=== PATIENT | female | born 1945 | race Caucasian/White ===

== ENCOUNTER → 2022-04-06 13:44 | Outpatient (CLI) | payer OTHER, SELFPAY ==
--- NOTE | 2022-04-06 | DI.MRI.S_ITS ---
PROCEDURE: MR KNEE LT WO/W CON INDICATIONS: LEFT KNEE MASS TECHNIQUE: Noncontrast sagittal PD fast spin echo and T2 fast spin echo with fat saturation, sagittal 3-D FLASH with fat saturation; coronal T1 spin echo and PD fast spin echo with fat saturation, and axial T1 spin echo and PD fast spin echo with fat saturation through the knee. Post-contrast axial, coronal, and sagittal T1 spin echo with fat saturation through the knee. COMPARISON: Outside Film, CR, XR KNEE 4+ VIEWS LEFT, 01/12/2022, 16:57 FINDINGS: Image quality: Excellent. Menisci: There is linear oblique high T2 signal intensity traversing the inner, middle, and peripheral thirds of the medial meniscal body and posterior horn, demonstrating inferior articular surface extension, indicating oblique tearing. Lateral meniscus is intact. Cruciate ligaments: The anterior and posterior cruciate ligaments appear intact. Medial structures: The medial collateral ligament appears intact. There is a well-circumscribed low T1/T2 signal intensity focus involving the anterior fibers of the medial collateral ligament at the femoral origin, measuring roughly 13 mm anteroposterior by 8 mm transverse by 20 mm craniocaudal, corresponding to the calcific density seen by plain film. Moderate ill-defined T2 signal elevation surrounding this lesion is present within the soft tissues. No abnormal enhancement within this lesion is present. The posterior oblique ligament, semimembranosus tendon insertions, and oblique popliteal liagment, and meniscocapsular junction appear intact. Visualized portions of the pes anserinus tendons appear normal. No abnormal bursal fluid. Lateral structures: The lateral collateral ligament, long and short heads of the biceps femoris tendon appear intact. The popliteus tendon appears normal; the popliteofibular ligament appears intact. The posterosuperior and anteroinferior popliteomeniscal fascicles appear intact. The arcuate and fabellofibular ligaments appear intact, around the lateral inferior geniculate artery. Iliotibial band appears normal. Anterior structures: The quadriceps and patellar tendons appear intact. Patellar alignment is normal. No femoral trochlear dysplasia or ventral trochlear prominence. No edema in the infrapatellar fat pad. Bones and cartilage: No suspicious osseous enhancement. No bone marrow contusions or fractures. Mild diffuse articular cartilage loss overlies the weight-bearing aspects of the medial femoral condyle and medial tibial plateau. Severe articular cartilage loss overlies the medial patellar apex. Joint space: There is physiologic knee joint fluid. No Renteria's cyst. Normal appearing synovial plicae are incidentally noted. No suspicious soft tissue enhancement. IMPRESSION: 1. Dystrophic calcification within the anterior fibers of the medial collateral ligament, consistent with sequelae of remote medial collateral ligament tear. There is evidence of surrounding soft tissue inflammation. 2. Medial meniscal tear. 3. Medial and patellofemoral compartment articular cartilage loss. Dictated by: Yanira Wei M.D. on 04/06/2022 at 15:10 Transcribed by: DONELL on 04/06/2022 at 15:13 Approved by: Yanira Wei M.D. on 04/06/2022 at 16:57
== END ==
PROVIDERS: PCP Family Medicine; Referring Provider Orthopaedic Surgery; Visit Provider Orthopaedic Surgery
DX: S83.242A Other tear of medial meniscus, current injury, left knee, initial encounter (principal); M25.562 Pain in left knee; R22.42 Localized swelling, mass and lump, left lower limb
CPT/HCPCS: 73723